=== PATIENT | female | born 1950 | race Caucasian/White ===

== ENCOUNTER 2017-02-13 10:02 | Inpatient (IN) | payer MEDICARE, BC ==
[2017-02-13] VITALS (7 sets, daily range): BP systolic 120–157; BP diastolic 49–68; PULSE 81–91; TEMP 97.3–97.9
[~2017-02-13] VITALS: Ht 149.9 cm; Wt 91.6 kg
[~2017-02-13 10:02] MED LIST: DITROPAN 5MG TAB5 MG PO; FLEXERIL 1010 MG/TAB PO; KLONOPIN 0.5MG0.5 MG PO; LASIX 20MG TABL20 MG PO; MILLIPRED5 MG PO; NORCO 325 MG-51 TAB PO; NORCO 325 MG-7.1 TAB PO; PEPCID 20MG TAB20 MG PO; PERCOCET 325 MG1 TA2 PO; PRAVACHOL 20MG20 MG PO; PREDNISONE1 MG PO; PREMARIN 0.60.625 M1 PO; PRINIVIL5 MG PO; TYLENOL 500MG500 MG PO; VESICARE 5MG5 MG PO; VOLTAREN 75 DR75 MG PO; VOLTAREN SR25 MG/TAB PO; ZOLOFT 50MG50 MG PO; [UNRECOGNIZED DRUG - OTHER]
[2017-02-13] MEDS ORDERED: CYMBALTA 60MG60 MG PO (13:33)
[2017-02-13] MEDS ORDERED: XANAX 0.5MG0.5 MG PO (13:34)
[2017-02-13] MEDS ORDERED: GLUCOPHAGE XR500 M1 PO (13:35)
[2017-02-13 15:55] LABS: BASO # 0.1 (0.0-0.2); BASO % 0.9 % (0.0-2.0); EOS # 0.3 (0.0-0.7); EOS % 2.9 % (0-4.0); GRAN # 6.9 (1.4-6.5); GRAN % 58.9 % (42.2-75.2); LYMPH % 25.6 % (20.0-51.0); MEAN CELL VOLUME 90 fl (80.0-100.0); MEAN CORPUSCULAR HGB CONC 32 g/dl (33.0-37.0); MEAN PLATELET VOLUME 9.8 fl (7.4-10.4); MONO # 1.3 (0.1-0.6); MONO % 11.2 % (1.7-9.3); PLATELET COUNT 287 K/mm3 (130-400); RED BLOOD COUNT 3.62 M/mm3 (4.10-5.30); WHITE BLOOD COUNT 11.7 K/mm3 (4.8-10.8)
[2017-02-13 16:00] LABS: HEMATOCRIT 32.6 % (37.0-47.0); HEMOGLOBIN 10.3 g/dl (12.5-16.0); MEAN CORPUSCULAR HEMOGLOBIN 28 pg (27.0-31.0)
[2017-02-13 16:05] LABS: ADJUSTED CALCIUM 9.3 mg/dL (8.4-10.2); ALBUMIN 3.9 gm/dL (3.5-5.0); BILIRUBIN,TOTAL 0.5 mg/dL (0.0-1.0); CALCIUM 9.2 mg/dL (8.4-10.2); CREATININE, serum 0.81 mg/dL (0.52-1.25); POTASSIUM 4.5 mmol/L (3.4-5.0); PROTHROMBIN TIME 11.1 SECONDS (9.7-12.8); TOTAL PROTEIN 6.8 gm/dL (6.4-8.2)
[2017-02-13 16:50] LABS: PH 5 (5-8); SQUAMOUS EPITHELIAL 0-2 /hpf; URINE APPEARANCE Clear; URINE BACTERIA Rare /hpf; URINE BILIRUBIN Negative (NEGATIVE); URINE BLOOD Negative (NEGATIVE); URINE COLOR Straw; URINE GLUCOSE Negative (NEGATIVE); URINE KETONE Negative (NEGATIVE); URINE RBC 0-2 /hpf; URINE UROBILINOGEN Negative (NEGATIVE); URINE WBC 0-2 /hpf
[2017-02-14 01:56] VITALS: BP 145/61; PULSE 103; TEMP 97.5
[2017-02-14 05:24] LABS: HEMATOCRIT 31.4 % (37.0-47.0); HEMOGLOBIN 9.6 g/dl (12.5-16.0)
[2017-02-14 05:45] LABS: CALCIUM 8.4 mg/dL (8.4-10.2); CREATININE, serum 0.81 mg/dL (0.52-1.25); POTASSIUM 4.1 mmol/L (3.4-5.0)
[2017-02-14 06:00] VITALS: BP 138/58; PULSE 76; TEMP 98.9
[2017-02-14 10:01] VITALS: BP 104/42; PULSE 98; TEMP 98.1
[2017-02-14 14:05] VITALS: BP 93/49; PULSE 92; TEMP 98.5
[2017-02-14 17:45] VITALS: BP 131/51; PULSE 93
[2017-02-14 21:58] VITALS: BP 124/49; PULSE 93; TEMP 98.3
[2017-02-15 02:26] VITALS: BP 118/52; PULSE 90; TEMP 98.3
[2017-02-15 05:57] VITALS: BP 130/53; PULSE 90; TEMP 98.2
[2017-02-15 07:08] LABS: HEMATOCRIT 28.6 % (37.0-47.0); HEMOGLOBIN 8.8 g/dl (12.5-16.0)
[2017-02-15 07:18] LABS: CALCIUM 8.8 mg/dL (8.4-10.2); CREATININE, serum 0.78 mg/dL (0.52-1.25); POTASSIUM 3.8 mmol/L (3.4-5.0)
[2017-02-15 09:58] VITALS: BP 130/46; PULSE 99; TEMP 98.1
[2017-02-15 13:44] VITALS: BP 144/71; PULSE 100; TEMP 98.6
[2017-02-15 21:06] LABS: PH 6 (5-8); SQUAMOUS EPITHELIAL None Seen /hpf; URINE APPEARANCE Clear; URINE BACTERIA Rare /hpf; URINE BILIRUBIN Negative (NEGATIVE); URINE BLOOD 1+ (NEGATIVE); URINE COLOR Yellow; URINE GLUCOSE Negative (NEGATIVE); URINE KETONE 1+ (NEGATIVE); URINE UROBILINOGEN Negative (NEGATIVE); URINE WBC 0-2 /hpf
[2017-02-15 22:03] VITALS: BP 150/71; PULSE 95; TEMP 98.1
[2017-02-16 05:13] VITALS: BP 155/66; PULSE 87; TEMP 98
[2017-02-16 07:53] LABS: BASO % 0.2 % (0.0-2.0); EOS # 0.5 (0.0-0.7); EOS % 5.1 % (0-4.0); GRAN # 6.3 (1.4-6.5); GRAN % 66.7 % (42.2-75.2); LYMPH # 1.7 (1.2-3.4); LYMPH % 17.6 % (20.0-51.0); MEAN CELL VOLUME 89 fl (80.0-100.0); MEAN CORPUSCULAR HGB CONC 31 g/dl (33.0-37.0); MEAN PLATELET VOLUME 10.2 fl (7.4-10.4); MONO # 0.9 (0.1-0.6); MONO % 9.8 % (1.7-9.3); PLATELET COUNT 335 K/mm3 (130-400); RED BLOOD COUNT 3.32 M/mm3 (4.10-5.30); REDCELL DISTRIBUTION WIDTH-CV 13.8 % (11.5-14.5); WHITE BLOOD COUNT 9.5 K/mm3 (4.8-10.8)
[2017-02-16 07:59] LABS: HEMATOCRIT 29.6 % (37.0-47.0); HEMOGLOBIN 9.1 g/dl (12.5-16.0); MEAN CORPUSCULAR HEMOGLOBIN 27 pg (27.0-31.0)
[2017-02-16 09:45] VITALS: BP 150/60; PULSE 93; TEMP 98.1
[2017-02-16 13:44] VITALS: BP 137/58; PULSE 96; TEMP 98.2
[2017-02-16 17:46] VITALS: BP 123/90; PULSE 93; TEMP 98.4
[2017-02-16 21:56] VITALS: BP 156/72; PULSE 84; TEMP 98.2
[2017-02-17 01:44] VITALS: BP 169/80; PULSE 78; TEMP 98.5
[2017-02-17 05:43] VITALS: BP 116/76; PULSE 98; TEMP 97.4
[2017-02-17 10:42] VITALS: BP 157/65; PULSE 89; TEMP 98.5
[2017-02-17] MEDS ORDERED: XARELTO10 MG PO (10:47)
[2017-02-17] MEDS ORDERED: SEROQUEL 2525 MG/TAB PO (10:49)
[2017-02-17] MEDS ORDERED: XANAX .25M0.25 MG/TA PO (10:51)
[2017-02-17] MEDS ORDERED: MELAT3MGTAB PO (10:53)
[2017-02-17 11:14] VITALS: BP 157/65; PULSE 89; TEMP 98.5
== END 2017-02-17 13:40 | disposition swing bed (61) | DRG 493 ==
LOC: SURG 13:20
PROVIDERS: Family Medicine; Nurse Practitioner; Nurse Practitioner Family; Orthopaedic Surgery
PROC: 0QSH04Z Reposition Left Tibia with Internal Fixation Device, Open Approach (ICD-10-PCS; 2017-02-13)
PROC: 0QSK04Z Reposition Left Fibula with Internal Fixation Device, Open Approach (ICD-10-PCS; principal; 2017-02-13 17:00)
DX: S82.852A Displaced trimalleolar fracture of left lower leg, initial encounter for closed fracture (principal); F33.1 Major depressive disorder, recurrent, moderate; I10 Essential (primary) hypertension; R41.0 Disorientation, unspecified; E11.9 Type 2 diabetes mellitus without complications; K21.9 Gastro-esophageal reflux disease without esophagitis; M35.3 Polymyalgia rheumatica; E78.5 Hyperlipidemia, unspecified; Z79.84 Long term (current) use of oral hypoglycemic drugs; R33.9 Retention of urine, unspecified; V48.4XXA Person boarding or alighting a car injured in noncollision transport accident, initial encounter
CPT/HCPCS: 90791-AI; 99222; 99232-AI; C1713; J0690; J2175; J2250; J2370; J2405; J2704; J2795; J3010; J7030

== ENCOUNTER 2017-04-04 05:42 | Day surgery (SDC) | payer MEDICARE, BC ==
[~2017-04-04] VITALS: Ht 149.9 cm; Wt 90.4 kg
[~2017-04-04 05:42] MED LIST changes: +CYMBALTA 60MG60 MG PO; +GLUCOPHAGE XR500 M1 PO; +MELAT3MGTAB PO; +SEROQUEL 2525 MG/TAB PO; +XANAX .25M0.25 MG/TA PO; +XANAX 0.5MG0.5 MG PO; +XARELTO10 MG PO
[2017-04-04] MEDS ORDERED: XANAX 0.5MG0.5 MG PO (06:35)
[2017-04-04] MEDS ORDERED: MELATONIN5 M1 SL (06:35)
[2017-04-04] MEDS ORDERED: NEURONTIN600 MG/TAB PO (06:40)
[2017-04-04] MEDS ORDERED: FLEXERIL 1010 MG/TAB PO (06:41)
[2017-04-04] MEDS ORDERED: PEPCID 20MG TAB20 MG PO (06:41)
[2017-04-04] MEDS ORDERED: BENADRYL25 M2 PO (06:42)
[2017-04-04] MEDS ORDERED: IRON TABLETS325 MG PO (06:44)
[2017-04-04 07:50] VITALS: BP 132/59; PULSE 84; TEMP 97.8
[2017-04-04] MEDS ORDERED: NORCO 325 MG-51 TAB PO (08:02)
[2017-04-04 08:05] VITALS: BP 133/61; PULSE 78
[2017-04-04 08:20] VITALS: BP 137/63; PULSE 79
[2017-04-04 08:35] VITALS: BP 141/67; PULSE 83
[2017-04-04 09:11] VITALS: BP 142/58; PULSE 69; TEMP 97.7
== END 2017-04-04 09:00 | disposition home or self-care (01) ==
LOC: SDCO 05:42
DX: T84.84XA Pain due to internal orthopedic prosthetic devices, implants and grafts, initial encounter (principal); M19.90 Unspecified osteoarthritis, unspecified site; E11.9 Type 2 diabetes mellitus without complications; K21.9 Gastro-esophageal reflux disease without esophagitis; E78.00 Pure hypercholesterolemia, unspecified; M35.3 Polymyalgia rheumatica; I10 Essential (primary) hypertension; F32.9 Major depressive disorder, single episode, unspecified; D64.9 Anemia, unspecified; Z96.652 Presence of left artificial knee joint; Z79.84 Long term (current) use of oral hypoglycemic drugs; Z90.710 Acquired absence of both cervix and uterus; Z90.49 Acquired absence of other specified parts of digestive tract; Z80.8 Family history of malignant neoplasm of other organs or systems; Z82.49 Family history of ischemic heart disease and other diseases of the circulatory system; Z83.3 Family history of diabetes mellitus
CPT/HCPCS: J0690; J2250; J2704; J3010; J7030